=== PATIENT | female | born 2005 | race Caucasian/White ===

== ENCOUNTER 2023-12-24 16:41 | Emergency (ER) | payer MEDICAID ==
[2023-12-24] MEDS ORDERED: Sodium Chloride 0.9% 1,000 ML IV ONE (16:46)
== END 2023-12-24 17:13 | disposition left against medical advice (07) ==
LOC: MW.ED 16:41
DX: R19.7 Diarrhea, unspecified (principal); R55 Syncope and collapse; J45.909 Unspecified asthma, uncomplicated
CPT/HCPCS: 99284